=== PATIENT | female | born 1975 | race Caucasian/White ===

== ENCOUNTER → 2022-11-19 | Outpatient (CLI) | payer OTHER ==
[2022-11-19 08:12] LABS: Albumin 3.5 g/dL (3.4-5.0); Calcium 8.3 mg/dL (8.5-10.1); Potassium 3.6 mmol/L (3.5-5.1)
[2022-11-19 08:16] LABS: BUN/Creatinine Ratio 17.2; Total Protein 7.4 g/dL (6.4-8.2)
== END | disposition home or self-care (01) ==
LOC: LAB 07:15
PROVIDERS: ATTEND Internal Medicine
DX: E03.9 Hypothyroidism, unspecified (principal); R73.9 Hyperglycemia, unspecified; E55.9 Vitamin D deficiency, unspecified
CPT/HCPCS: 36415; 80053; 82306; 82465; 83036; 83718; 83721

== ENCOUNTER → 2023-02-18 | Outpatient (CLI) | payer OTHER, MEDICAID ==
[2023-02-18 18:46] LABS: Free T4 (Free Thyroxine) 1.09 ng/dL (0.89-1.76); T3 Total 0.89 ng/mL (0.60-1.81)
== END | disposition home or self-care (01) ==
LOC: LAB 07:57
PROVIDERS: ATTEND Internal Medicine
DX: E03.9 Hypothyroidism, unspecified (principal)
CPT/HCPCS: 36415; 84439; 84443; 84480

== ENCOUNTER → 2023-05-21 | Outpatient (CLI) | payer OTHER, MEDICAID ==
[2023-05-21 08:52] LABS: Alanine Aminotransferase 28 U/L (7-40); Alkaline Phosphatase 75 U/L (46-116); BUN/Creatinine Ratio 12.1 (10.0-20.0); Blood Urea Nitrogen 11 mg/dL (9-23); Calcium 8.9 mg/dL (8.5-10.1); Carbon Dioxide 25 mmol/L (20-30); Glucose 107 mg/dL (74-106); LDL Cholesterol 86 mg/dL (< 100); Triglycerides 93 mg/dL (< 150)
[2023-05-21 08:53] LABS: Albumin 4.3 g/dL (3.2-4.8); Aspartate Aminotransferase 30 U/L (13-40); Cholesterol 130 mg/dL (< 200); HDL Cholesterol 40 mg/dL (40-59); Total Protein 7.3 g/dL (5.7-8.2)
[2023-05-21 09:07] LABS: Anion Gap 7 (5-15); Chloride 107 mmol/L (98-107); Potassium 3.8 mmol/L (3.5-5.1); Sodium 139 mmol/L (136-145)
== END | disposition home or self-care (01) ==
LOC: LAB 07:55
PROVIDERS: ATTEND Internal Medicine
DX: E66.01 Morbid (severe) obesity due to excess calories (principal); E03.9 Hypothyroidism, unspecified; E78.5 Hyperlipidemia, unspecified
CPT/HCPCS: 36415; 80053; 80061; 83036; 84436; 84443; 84480

== ENCOUNTER → 2024-03-23 | Outpatient (CLI) | payer OTHER, MEDICAID ==
[2024-03-23 08:18] LABS: Alanine Aminotransferase 39 U/L (7-40); Albumin 4.4 g/dL (3.2-4.8); Alkaline Phosphatase 100 U/L (46-116); Anion Gap 8 (5-15); Aspartate Aminotransferase 35 U/L (13-40); BUN/Creatinine Ratio 10.9 (10.0-20.0); Blood Urea Nitrogen 10 mg/dL (9-23); Calcium 9.3 mg/dL (8.7-10.4); Carbon Dioxide 21 mmol/L (20-30); Chloride 109 mmol/L (98-107); Cholesterol 123 mg/dL (< 200); Glucose 119 mg/dL (74-106); HDL Cholesterol 38 mg/dL (40-59); LDL Cholesterol 82 mg/dL (< 100); Potassium 3.7 mmol/L (3.5-5.1); Sodium 138 mmol/L (136-145); Triglycerides 93 mg/dL (< 150)
[2024-03-23 08:19] LABS: Bilirubin, Total 0.8 mg/dL (0.2-1.0); Total Protein 7.2 g/dL (5.7-8.2)
[2024-03-23 08:24] LABS: Creatinine, Urine 267.18 mg/dL (30.0-125.0)
[2024-03-24 08:06] LABS: Free Thyroxine Index 3.3 (1.2-4.9); Thyroxine (T4) 10.6 ug/dL (4.5-12.0)
== END | disposition home or self-care (01) ==
LOC: LAB 07:14
PROVIDERS: ATTEND Internal Medicine
DX: E11.69 Type 2 diabetes mellitus with other specified complication (principal); E78.5 Hyperlipidemia, unspecified; E03.9 Hypothyroidism, unspecified
CPT/HCPCS: 36415; 80053; 80061; 82043; 82570; 83036; 84443

== ENCOUNTER → 2024-06-24 | Outpatient (CLI) | payer OTHER, MEDICAID ==
[2024-06-24 08:47] LABS: Alanine Aminotransferase 34 U/L (7-40); Albumin 4.4 g/dL (3.2-4.8); Alkaline Phosphatase 95 U/L (46-116); Anion Gap 6 (5-15); Aspartate Aminotransferase 29 U/L (13-40); BUN/Creatinine Ratio 12.2 (10.0-20.0); Blood Urea Nitrogen 11 mg/dL (9-23); Calcium 9.6 mg/dL (8.7-10.4); Carbon Dioxide 23 mmol/L (20-31); Chloride 110 mmol/L (98-107); Glucose 111 mg/dL (74-106); Potassium 3.5 mmol/L (3.5-5.1); Sodium 139 mmol/L (136-145)
[2024-06-24 08:48] LABS: Bilirubin, Total 0.7 mg/dL (0.2-1.0); Total Protein 7.6 g/dL (5.7-8.2)
== END | disposition home or self-care (01) ==
LOC: LAB 07:26
PROVIDERS: ATTEND Internal Medicine
DX: R73.9 Hyperglycemia, unspecified (principal); E03.9 Hypothyroidism, unspecified; E55.9 Vitamin D deficiency, unspecified
CPT/HCPCS: 36415; 80053; 82306; 83036; 84436; 84443; 84480

== ENCOUNTER → 2024-10-07 | Outpatient (CLI) | payer OTHER, MEDICAID ==
[2024-10-07 08:29] LABS: Albumin 4.5 g/dL (3.2-4.8); Alkaline Phosphatase 109 U/L (46-116); Anion Gap 12 (5-15); BUN/Creatinine Ratio 13.8 (10.0-20.0); Blood Urea Nitrogen 13 mg/dL (9-23); Calcium 9.6 mg/dL (8.7-10.4); Carbon Dioxide 22 mmol/L (20-31); Chloride 104 mmol/L (98-107); Potassium 3.7 mmol/L (3.5-5.1); Sodium 138 mmol/L (136-145)
[2024-10-07 08:30] LABS: Alanine Aminotransferase 50 U/L (7-40); Aspartate Aminotransferase 47 U/L (13-40); Glucose 124 mg/dL (74-106); Total Protein 7.4 g/dL (5.7-8.2)
== END | disposition home or self-care (01) ==
LOC: LAB 07:42
PROVIDERS: ATTEND Internal Medicine
DX: E55.9 Vitamin D deficiency, unspecified (principal); E03.9 Hypothyroidism, unspecified; R73.9 Hyperglycemia, unspecified
CPT/HCPCS: 36415; 80053; 82306; 83036; 84436; 84443; 84480

== ENCOUNTER → 2024-11-05 | Outpatient (CLI) | payer OTHER, MEDICAID | END | disposition home or self-care (01) | LOC: LAB 13:11 | PROVIDERS: ATTEND Internal Medicine | DX: Z13.9 Encounter for screening, unspecified (principal) | CPT/HCPCS: 82270; 82272 ==

== ENCOUNTER 2025-02-22 07:32 | Outpatient (CLI) | payer OTHER, MEDICAID ==
[2025-02-22 08:37] LABS: Potassium 3.5 mmol/L (3.5-5.1); Sodium 141 mmol/L (136-145)
[2025-02-22 08:43] LABS: Calcium 9.6 mg/dL (8.7-10.4)
[2025-02-22 08:47] LABS: Alkaline Phosphatase 89 U/L (46-116)
[2025-02-22 08:48] LABS: BUN/Creatinine Ratio 13.2 (10.0-20.0); Blood Urea Nitrogen 12 mg/dL (9-23); Total Protein 7.4 g/dL (5.7-8.2)
[2025-02-22 08:49] LABS: Alanine Aminotransferase 36 U/L (7-40); Albumin 4.3 g/dL (3.2-4.8)
[2025-02-22 08:50] LABS: Bilirubin, Total 0.9 mg/dL (0.2-1.0)
[2025-02-22 08:52] LABS: Chloride 107 mmol/L (98-107)
[2025-02-22 08:53] LABS: Anion Gap 13 (5-15); Aspartate Aminotransferase 38 U/L (<34); Carbon Dioxide 21 mmol/L (20-31); Glucose 114 mg/dL (74-106)
== END 2025-02-22 17:00 | disposition home or self-care (01) ==
LOC: LAB 07:32
PROVIDERS: ATTEND Internal Medicine
DX: E03.9 Hypothyroidism, unspecified (principal); E55.9 Vitamin D deficiency, unspecified; R73.9 Hyperglycemia, unspecified
CPT/HCPCS: 36415; 80053; 82306; 83036; 84436; 84443; 84480

== ENCOUNTER 2025-05-17 07:27 | Outpatient (CLI) | payer OTHER, MEDICAID ==
[2025-05-17 07:50] LABS: Hematocrit 43.8 % (36.0-46.0); Hemoglobin 15.0 g/dL (12.2-16.2); Mean Corpuscular Hemoglobin 30.5 pg (28.0-32.0); Mean Corpuscular Volume 89.2 fL (80.0-100.0); Nucleated Red Blood Cells % 0.1 %
[2025-05-17 08:15] LABS: Iron 79.0 ug/dL (50-170)
[2025-05-17 08:18] LABS: Total Iron Binding Capacity 301.0 ug/dL (250-425)
[2025-05-17 08:24] LABS: Alanine Aminotransferase 33 U/L (7-40); Albumin 4.3 g/dL (3.2-4.8); Alkaline Phosphatase 100 U/L (46-116); Anion Gap 14 (5-15); BUN/Creatinine Ratio 8.5 (10.0-20.0); Calcium 9.2 mg/dL (8.7-10.4); Carbon Dioxide 21 mmol/L (20-31); Chloride 105 mmol/L (98-107); Potassium 3.7 mmol/L (3.5-5.1); Sodium 140 mmol/L (136-145); Total Protein 7.6 g/dL (5.7-8.2); Triglycerides 118 mg/dL (< 150)
[2025-05-17 08:25] LABS: Bilirubin, Total 0.9 mg/dL (0.2-1.0); Cholesterol 130 mg/dL (< 200)
[2025-05-17 08:29] LABS: Blood Urea Nitrogen 8 mg/dL (9-23); Glucose 136 mg/dL (74-106); HDL Cholesterol 37 mg/dL (40-59)
[2025-05-17 11:18] LABS: Ferritin 61.7 ng/mL (10-291); Free T3 3.03 pg/mL (2.3-4.2); Free T4 (Free Thyroxine) 1.33 ng/dL (0.89-1.76)
== END 2025-05-17 17:00 | disposition home or self-care (01) ==
LOC: LAB 07:27
PROVIDERS: ATTEND Internal Medicine
DX: E03.9 Hypothyroidism, unspecified (principal); E78.5 Hyperlipidemia, unspecified; E55.9 Vitamin D deficiency, unspecified; R73.09 Other abnormal glucose; R73.03 Prediabetes; R00.0 Tachycardia, unspecified
CPT/HCPCS: 36415; 80053; 80061; 82306; 82607; 82728; 82746; 83036; 83540; 83550; 84439; 84443; 84481; 85025

== ENCOUNTER 2025-07-21 06:50 | Outpatient (CLI) | payer OTHER, MEDICAID ==
[2025-07-21 07:31] LABS: Alanine Aminotransferase 20 U/L (7-40); Albumin 4.3 g/dL (3.2-4.8); Alkaline Phosphatase 86 U/L (46-116); Anion Gap 12 (5-15); BUN/Creatinine Ratio 9.9 (10.0-20.0); Bilirubin, Total 1.0 mg/dL (0.2-1.0); Calcium 9.2 mg/dL (8.7-10.4); Carbon Dioxide 24 mmol/L (20-31); Chloride 106 mmol/L (98-107); Potassium 3.6 mmol/L (3.5-5.1); Sodium 142 mmol/L (136-145); Total Protein 7.6 g/dL (5.7-8.2)
[2025-07-21 07:41] LABS: Blood Urea Nitrogen 8 mg/dL (9-23); Glucose 118 mg/dL (74-106)
[2025-07-21 09:02] LABS: Free T3 3.63 pg/mL (2.3-4.2)
[2025-07-21 09:04] LABS: Free T4 (Free Thyroxine) 1.78 ng/dL (0.89-1.76)
== END 2025-07-21 17:00 | disposition home or self-care (01) ==
LOC: LAB 06:50
PROVIDERS: ATTEND Internal Medicine
DX: E03.9 Hypothyroidism, unspecified (principal); R73.03 Prediabetes
CPT/HCPCS: 36415; 80053; 82951; 82952; 83036; 84439; 84443; 84481